=== PATIENT | male | born 1965 | race Caucasian/White ===

== ENCOUNTER 2016-09-16 06:41 | Day surgery (SDC) | payer OTHER ==
[2016-09-14 16:39] VITALS: BMI 36.6
[2016-09-16] MEDS ORDERED: PROPOFOL 20 ML ONE ×2 (07:16→07:17)
[2016-09-16] MEDS ORDERED: ceFAZolin SODIUM 1 GM VIAL ONE ×2 (07:16→07:19)
[2016-09-16] MEDS ORDERED: SUCCINYLCHOLINE CHLORIDE 200 MG/10 ML VIAL ONE (07:16)
[2016-09-16] MEDS ORDERED: MIDAZOLAM HCL 2 MG/2 ML SINGLE DOSE VIAL ONE ×2 (07:16→07:49)
[2016-09-16] MEDS ORDERED: KETOROLAC TROMETHAMINE 30 MG/1 ML VIAL ONE (07:17)
[2016-09-16] MEDS ORDERED: LIDOCAINE HCL/PF 2% SDV 5ML VIAL ONE (07:17)
[2016-09-16] MEDS ORDERED: LIDOCAINE HCL 2% JELLY (5 ML/TUBE) ONE (07:17)
[2016-09-16] MEDS ORDERED: DEXAMETHASONE SOD PHOSPHATE 4 MG/1 ML VIAL ONE (07:17)
[2016-09-16] MEDS ORDERED: ONDANSETRON 4 MG/2 ML VIAL ONE (07:17)
[2016-09-16] MEDS ORDERED: EPINEPHrine 1:1,000 1 MG/1 ML - 30ML VIAL (INJECTION) ONE (07:38)
[2016-09-16] MEDS ORDERED: BUPIVACAINE HCL 0.25% 125 MG/50 ML VIAL ONE (07:38)
--- NOTE | 2016-09-16 09:18 | OP ---
DATE OF OPERATION: 09/16/2016 PREOPERATIVE DIAGNOSIS: Right knee medial meniscal tear. POSTOPERATIVE DIAGNOSIS: Right knee medial meniscal tear. PROCEDURE: Right knee arthroscopy with partial meniscectomy of the medial side. SURGEON: Sam Paz MD CERTIFIED LOW VISION THERAPIST: ANISHA Koenig ANESTHESIA TYPE: Spinal. POSTOPERATIVE CONDITION: Stable. COMPLICATIONS: None. TOURNIQUET TIME: 27 minutes. INDICATIONS: This is a pleasant 51-year-old gentleman who is suffering from medial knee pain. MRI demonstrated medial meniscal tear. Treatment options including nonoperative versus operative management were discussed. Operative risks were reviewed in detail including bleeding, infection, neurovascular injury, need for further surgery, postoperative pain or stiffness, progression of osteoarthritis. We reviewed medical risks such as heart attack, stroke, DVT, PE, and . I addressed all the patients questions. He patient voiced understanding and elected to proceed. DESCRIPTION OF PROCEDURE: The patient was brought to the operating room where spinal anesthesia was administered. Patient was then placed supine, padding all the bony prominences. The right lower extremity was then prepped and draped in the usual sterile fashion. A preoperative dose of antibiotics was given, and the usual time-out procedure was performed. At this point, the portal sites were marked out. They were then injected subcutaneously with 0.25% Marcaine. The 11 blade was now used to make the lateral portal after elevation of the limb and inflation of the tourniquet. The arthroscope was now passed into the knee. Examination of the suprapatellar pouch demonstrated no findings. Examination of the patellofemoral joint demonstrated some superficial cartilage wear. Passing the arthroscope within the notch demonstrated intact ACL. Passing into the medial compartment demonstrated fissuring and fraying about the medial femoral condyle. The medial portal was now established under spinal needle localization. A probe was passed back, and the tear was seen in the posterior horn of the meniscus, which was mostly on the undersurface, but did penetrate through to the superior surface, as well. Utilizing a combination of meniscal biters as well as a shaver, this was debrided down to a stable base. The arthroscope was now passed into the lateral compartment. Here, while there were some degenerative changes seen about the posterior aspect of the lateral meniscus with softening and some fraying, no discrete tear was noted. There were no lesions to the cartilage surfaces here. Meniscus was probed and stable. Excess fluid at this point was withdrawn from the knee. Tourniquet was let down after 27 minutes after placement of sterile dressings. Patient was transferred to the recovery room in stable condition. Issac [id number]
[2016-09-16 10:50] VITALS: TEMP 97.5
[2016-09-16 11:31] VITALS: BP 115/70; PULSE 73
[2016-09-16] MEDS ORDERED: ONDANSETRON 4 MG/2 ML VIAL IVPUSH PRN (14:02)
[2016-09-16] MEDS ORDERED: oxyCODONE HCL 5 MG TABLET PO PRN ×2 (14:02)
[2016-09-16] MEDS ORDERED: LACTATED RINGERS SOLUTION 1,000 ML IV SCH (14:15)
== END 2016-09-16 12:45 | disposition home or self-care (01) ==
LOC: EDBD → FASU 06:41
PROVIDERS: ATTEND Orthopaedic Surgery Sports Medicine
PROC: 0SBC4ZZ Excision of Right Knee Joint, Percutaneous Endoscopic Approach (ICD-10-PCS; principal; 2016-09-16 08:12)
DX: S83.241A Other tear of medial meniscus, current injury, right knee, initial encounter (principal); X58.XXXA Exposure to other specified factors, initial encounter; Y93.9 Activity, unspecified; Y92.9 Unspecified place or not applicable
CPT/HCPCS: 94760; 97116-GP

== ENCOUNTER 2017-11-02 11:10 | Emergency (ER) | payer BC, OTHER ==
[2017-11-02 11:16] VITALS: BP 122/80; PULSE 58; TEMP 98.5; BMI 31.0
--- NOTE | 2017-11-02 11:40 | PDOC ---
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 There was one blow, only mild pain was experienced, there was no shortness of breath. The pain has persisted, is described as mild and aggravated by certain movements and deep breathing, but has not limited activity. It is not exertional. There is been no nausea, diaphoresis, dizziness or lightheadedness. Review of systems: Denies fever/chills, cough, URI symptoms, sore throat, abdominal pain, vomiting or diarrhea, visual or focal neurologic symptoms, unsteadiness of gait Past medical history: Right knee surgery. Otherwise healthy. Specifically, no diabetes, cardiac disease, pulmonary disease, GI disease. No medications Social history: No tobacco alcohol or nonprescription drugs. Active and without disability Family history: Father with hypertension, lived until the late 80s. No early coronary artery disease, metabolic disease including diabetes, or cancer Physical exam: Alert and oriented well-developed well-nourished no acute distress cheerful and cooperative. No pain at rest, mild pain with movement of the torso and deep inspiration Afebrile, vital signs normal Head atraumatic. PERRLA, fundi benign, ENT clear Neck supple without bruit mass or nodes. No point tenderness or deformity, full range of motion without pain Lungs clear to P&A, full breath sounds throughout bilaterally, no splinting with deep inspiration. There is mild tenderness over the parasternal cartilages left side and midsternum, without crepitus or deformity of the rib cage or other chest structures. CV S1 and S2 normal without murmur rub or gallop pulses full and symmetric no JVD or edema 60 and regular Abdomen soft nontender without mass or organomegaly. Nondistended. Bowel sounds normal. No CVAT No spine or pelvic tenderness or deformity Neurological C2 to 12 intact. Strength full and symmetric. No focal sensory or motor deficits. Gait stable and unimpaired Extremities: No CCE. No trauma Skin clear, no rash, adequate turgor and wet mucous membranes Impression: This is most likely traumatic costochondritis, with residual inflammation. There is chest wall tenderness. There are no respiratory or cardiac disease and the pain is nonexertional and has no other characteristics or associated symptoms which suggest cardiac etiology Plan: Because of the patient's age, EKG and cardiac enzymes. Further symptomatic treatment as required. Past History - Past Medical History Allergies/Adverse Reactions: Allergies Allergy/AdvReac Type Severity Reaction Status Date / Time No Known Allergies Allergy Verified 11/02/17 11:11 Home Medications: Ambulatory Orders Ascorbate Calcium [Vitamin C] 8,000 mg PO DAILY 09/14/16 Cholecalciferol (Vitamin D3) [Vitamin D3] 5,000 unit PO DAILY 09/14/16 [place] 320 mg PO BID 09/14/16 Selenium 50 mcg PO DAILY 09/14/16 Turmeric [Curcumin] 500 mg PO BID 09/14/16 Ubidecarenone [Coq-10] 100 mg PO BID 09/14/16 Vitamin E Mixed [Vitamin E] 1,000 unit PO DAILY 09/14/16 Zinc Gluconate [Zinc] 50 mg PO DAILY 09/14/16 Anemia: No Asthma: No Cancer: No Cardiac Disorders: No CVA: No COPD: No CHF: No Dementia: No Diabetes: No GI Disorders: No Disorders: No HTN: No Hypercholesterolemia: No Liver Disease: No Seizures: No Thyroid Disease: No - Surgical History Abdominal Surgery: Yes (Bilateral Inguinal Hernia Repair) Appendectomy: No Cardiac Surgery: No Cholecystectomy: No Lung Surgery: No Neurologic Surgery: No Orthopedic Surgery: No - Suicide/Smoking/Psychosocial Hx Smoking History: Never smoked Have you smoked in the past 12 months: No Hx Alcohol Use: No Drug/Substance Use Hx: No Substance Use Type: None Hx Substance Use Treatment: No *Physical Exam - Vital Signs Last Vital Signs Temp Pulse Resp BP Pulse Ox 98.5 F 58 L 18 122/80 100 11/02/17 11:11 11/02/17 11:11 11/02/17 11:11 11/02/17 11:11 11/02/17 11:11 Medical Decision Making - Medical Decision Making 11/02/17 12:13 EKG reveals a mild sinus bradycardia with sinus arrhythmia, 55/m. Normal axes and intervals. No significant ST-T wave changes. Otherwise normal EKG. unchanged since prior dated 09/15/2016. 11/02/17 12:17 11/02/17 12:50 Cardiac enzymes are normal. Musculoskeletal pain, traumatic costochondritis, most likely diagnosis. Advised rest, avoid strenuous upper body activity, and follow-up 1 week with primary physician. Return to ER if additional symptoms develop. Fully ambulatory and in no significant pain or other distress upon discharge *DC/Admit/Observation/Transfer Diagnosis at time of Disposition: Costochondritis - Discharge Dispostion Disposition: HOME Condition at time of disposition: Stable Decision to Admit order: No - Referrals - Patient Instructions Printed Discharge Instructions: DI for Costochondritis Additional Instructions: Rest, avoid strenuous upper body exercise, take Motrin or Aleve if the pain is bothersome, and see Dr. Dutta in one week for further evaluation if pain persists. Gentle ice massage may be helpful. Heat may be soothing. Return to ER if additional serious symptoms develop.. - Post Discharge Activity Forms/Work/School Notes: Back to Work
--- NOTE | 2017-11-03 11:31 | EKG ---
Test Reason : Blood Pressure : / mmHG Vent. Rate : 055 BPM Atrial Rate : 055 BPM P-R Int : 162 ms QRS Dur : 104 ms QT Int : 408 ms P-R-T Axes : 047 013 043 degrees QTc Int : 390 ms SINUS BRADYCARDIA WITH SINUS ARRHYTHMIA OTHERWISE NORMAL ECG WHEN COMPARED WITH ECG OF 15-SEP-2016 11:56, NO SIGNIFICANT CHANGE WAS FOUND Confirmed by DEXTER SONG MD ([id number]) on 11/03/2017 11:31:00 AM Referred By: RODRICK MANDEL Confirmed By:DEXTER SONG MD
== END 2017-11-02 12:58 | disposition home or self-care (01) ==
LOC: FER 11:10
DX: M94.0 Chondrocostal junction syndrome [Tietze] (principal); W22.8XXA Striking against or struck by other objects, initial encounter; Y93.9 Activity, unspecified; Y92.219 Unspecified school as the place of occurrence of the external cause; Y99.0 Civilian activity done for income or pay
CPT/HCPCS: 36415; 82550; 84484; 93005; 99282-25

== ENCOUNTER 2021-01-22 11:47 | Day surgery (SDC) | payer OTHER ==
[2021-01-19 13:47] VITALS: BMI 33.6
[2021-01-22] MEDS ORDERED: BUPIVACAINE HCL/PF 0.25% (2.5MG/ML) 10 ML VIAL ONE (12:29)
[2021-01-22] MEDS ORDERED: BUPIVACAINE HCL/PF 0.5% (5MG/ML) 10 ML VIAL ONE (13:02)
[2021-01-22] MEDS ORDERED: MIDAZOLAM HCL 2 MG/2 ML SINGLE DOSE VIAL ONE (13:11)
[2021-01-22] MEDS ORDERED: ONDANSETRON 4 MG/2 ML VIAL ONE (13:32)
[2021-01-22] MEDS ORDERED: DEXAMETHASONE SOD PHOSPHATE 4 MG/1 ML VIAL ONE (13:32)
[2021-01-22] MEDS ORDERED: KETOROLAC TROMETHAMINE 30 MG/1 ML VIAL ONE (13:32)
[2021-01-22] MEDS ORDERED: ceFAZolin SODIUM 1 GM VIAL ONE (13:32)
[2021-01-22] MEDS ORDERED: BUPIVACAINE HCL/PF 0.25% (2.5MG/ML) 10 ML VIAL IJ ONE (13:34)
[2021-01-22] MEDS ORDERED: oxyCODONE HCL 5 MG TABLET PO PRN ×2 (14:03)
[2021-01-22] MEDS ORDERED: PROMETHAZINE HCL 25 MG/1 ML VIAL IVPUSH PRN (14:03)
[2021-01-22] MEDS ORDERED: ONDANSETRON 4 MG/2 ML VIAL IVPUSH PRN (14:03)
[2021-01-22 16:40] VITALS: BP 101/62; PULSE 58; TEMP 98
== END 2021-01-22 17:27 | disposition home or self-care (01) ==
LOC: FASU 11:47
PROVIDERS: ATTEND Orthopaedic Surgery Sports Medicine
PROC: 0SBD4ZZ Excision of Left Knee Joint, Percutaneous Endoscopic Approach (ICD-10-PCS; principal; 2021-01-22 13:34)
DX: S83.242A Other tear of medial meniscus, current injury, left knee, initial encounter (principal); X58.XXXA Exposure to other specified factors, initial encounter; Y93.9 Activity, unspecified; Y92.9 Unspecified place or not applicable
CPT/HCPCS: 94760

== ENCOUNTER 2022-08-20 12:48 | Emergency (ER) | payer OTHER ==
[2022-08-20 12:55] VITALS: BP 128/84; PULSE 78; RESP 18; TEMP 98.4; BMI 28.8
== END 2022-08-20 15:35 | disposition home or self-care (01) ==
LOC: FER 12:48
DX: S09.90XA Unspecified injury of head, initial encounter (principal); T14.8XXA Other injury of unspecified body region, initial encounter; Y04.8XXA Assault by other bodily force, initial encounter
CPT/HCPCS: 70450-TC; 99284-25